=== PATIENT | male | born 1960 | race African-American/Black ===

== ENCOUNTER 2017-06-07 23:11 | Emergency (ER) | payer OTHER, BC ==
[~2017-06-07] VITALS: Ht 172.7 cm; Wt 90.7 kg
[~2017-06-07 23:11] MED LIST: LISINOPRIL10 MG; LOPRESSOR25
[2017-06-07 23:13] VITALS: BP 178/106
[2017-06-08] MEDS ORDERED: IBUPROFEN 600600 M1 PO (00:14)
[2017-06-08] MEDS ORDERED: NORFLEX100 MG PO (00:14)
[2017-06-08] MEDS ORDERED: NORCO 5-325 TA1 EACH PO (00:14)
== END 2017-06-08 00:42 | disposition home or self-care (01) ==
LOC: ER 23:11
DX: S20.221A Contusion of right back wall of thorax, initial encounter (principal); I10 Essential (primary) hypertension; V83.9XXA Unspecified occupant of special industrial vehicle injured in nontraffic accident, initial encounter; Y93.89 Activity, other specified; Y92.89 Other specified places as the place of occurrence of the external cause; Y99.0 Civilian activity done for income or pay